=== PATIENT | male | born 1975 | race Caucasian/White ===

== ENCOUNTER 2017-03-15 22:58 | Emergency (ER) | payer OTHER ==
[~2017-03-15] VITALS: Ht 185.4 cm; Wt 84.2 kg
[~2017-03-15 22:58] MED LIST: DILANTIN100 MG PO; FLEXERIL10 MG PO; TRAZODONE HCL100 MG PO; VALIUM10 MG PO
[2017-03-16 00:49] LABS: HEMATOCRIT 44.9 % (38.0-50.0); MCH 29.9 PG (29.0-34.0); MCHC 34.7 G/DL (30.0-36.0); MCV 86.2 FL (86-99); MEAN PLAT.VOLUME 10.9 uM^3 (9.0-12.4); PLATELET COUNT 160 K/uL (156-360); RBC DIS.WIDTH-CV 12.7 % (11.8-14.6); RBC DIS.WIDTH-SD 39.7 % (39-53); RED BLOOD COUNT 5.21 M/uL (4.00-5.50); WHITE BLOOD COUNT 15.4 K/uL (4.1-10.2)
[2017-03-16 01:03] LABS: CHLORIDE 107 mEq/L (99-109); POTASSIUM 4.3 mEq/L (3.7-5.4); SODIUM 142 mEq/L (136-147)
[2017-03-16 01:05] LABS: GLUCOSE 74 mg/dL (70-99)
[2017-03-16 01:07] LABS: ANION GAP 10 MEQ/L (2-14)
[2017-03-16 01:09] LABS: GFR ESTIMATE (CALCULATED) > 59 mL/min/; SERUM ETHYL ALCOHOL < 10 mg/dL
[2017-03-16 01:11] LABS: UREA NITROGEN (BUN) 15 mg/dL (9-23)
[2017-03-16 01:12] LABS: SALICYLATE < 5.0 MG/DL (15-30)
[2017-03-16] MEDS ORDERED: AZITHROMYCIN250 MG PO (02:23)
[2017-03-16] MEDS ORDERED: NARCAN4 MG NS (02:23)
[2017-03-16 02:38] VITALS: BP 126/84
== END 2017-03-16 03:13 | disposition home or self-care (01) ==
LOC: EME → EDBD 22:58 → EME 03-16 03:13
PROVIDERS: Emergency Medicine
DX: T40.1X1A Poisoning by heroin, accidental (unintentional), initial encounter (principal); J69.0 Pneumonitis due to inhalation of food and vomit; R11.10 Vomiting, unspecified; R00.0 Tachycardia, unspecified; F17.200 Nicotine dependence, unspecified, uncomplicated
CPT/HCPCS: 71020; 80048; 85027; 93005; 99281; 99284; G0480; J2310; J7030